=== PATIENT | male | born 1945 | race Caucasian/White ===

== ENCOUNTER 2017-10-12 19:12 | Observation (INO) | payer OTHER, MEDICARE ==
[~2017-10-12] VITALS: Ht 177.8 cm; Wt 81.0 kg
[~2017-10-12 19:12] MED LIST: ASPI1TAB69 PO; FOLI1TAB4 PO; HYDR-3288 PO; LISI-515 PO; METO25TA3 PO; MOBI15TA PO; NAPR250T4 PO; SIMV40TA PO; THIA100T PO; TRID0.1C TOPICAL
[2017-10-12 19:17] VITALS: BP 137/82; TEMP 97.7; O2SAT 100
--- NOTE | 2017-10-12 19:27 | PD ---
HPI Chief Complaint: Alcohol/Drug Intoxication Time Seen by Provider: 19:20 Travel History International Travel<30 days: No Contact w/Intl Traveler<30days: No Traveled to known affect area: No History of Present Illness HPI 72-year-old male was brought in by EMS for intoxication and knee injury. Patient fell at home. Patient's friend called EMS. Patient admitted to alcohol consumption today. Patient does not offer any complaint now. PFSH Past Medical History Hx Anticoagulant Therapy: Yes (81 MG. ASA DAILY) Arthritis: Yes Asthma: No Autoimmune Disease: No Blood Disorders: No Anxiety: Yes Depression: Yes Heart Rhythm Problems: No Cancer: No Cardiovascular Problems: Yes (HTN, CHOL, PA) High Cholesterol: Yes Chemotherapy: No Chest Pain: No Congestive Heart Failure: No COPD: Yes Cerebrovascular Accident: No Coronary Artery Disease: Yes Diabetes: Yes Diminished Hearing: No Endocrine: No Gastrointestinal Disorders: Yes GERD: Yes Glaucoma: No Genitourinary: No Headaches: No Hepatitis: No Hypertension: Yes Immune Disorder: No Kidney Stones: No Musculoskeletal: Yes Neurologic: Yes Psychiatric: No Respiratory: Yes Migraines: No Myocardial Infarction: Yes (06/2011) Radiation Therapy: No Renal Failure: No Seizures: Yes (1982) Sickle Cell Disease: No Sleep Apnea: No Thyroid Disease: No Ulcer: No Past Surgical History Abdominal Surgery: Yes (COLON TWISTED) AICD: No Appendectomy: Yes Arteriovenous Shunt: No Cardiac Surgery: No Cholecystectomy: No Ear Surgery: No Endocrine Surgery: No Eye Surgery: No Genitourinary Surgery: No Gynecologic Surgery: No Insulin Pump: No Joint Replacement: No Oral Surgery: No Pacemaker: No Thoracic Surgery: No Other Surgery: Yes Social History Alcohol Use: Yes (OCCASSIONALLY) Tobacco Use: Yes (1 2P) Substance Use: No Allergies-Medications (Allergen,Severity, Reaction): Coded Allergies: No Known Allergies (Unverified , 09/14/16) Reported Meds & Prescriptions Reported Meds & Active Scripts Active Triderm Topical (Triamcinolone Topical) 0.1 % Cream 1 Applic TOPICAL BID Reported Thiamine (Thiamine HCl) 100 Mg Tab 100 Mg PO DAILY Simvastatin 40 Mg Tab 40 Mg PO HS Naproxen 250 Mg Tab 125 Mg PO BID Metoprolol Tartrate 25 Mg Tab 25 Mg PO BID Mobic (Meloxicam) 15 Mg Tab 15 Mg PO DAILY Lisinopril 20 Mg Tab 20 Mg PO DAILY [place] (Hydrocodone-Acetaminophen) 7.5-325 mg Tab 1 Tab PO Q4H PRN Folate (Folic Acid) 1 Mg Tab 1 Mg PO DAILY Aspirin 81 Mg Tabdr 81 Mg PO DAILY Review of Systems General / Constitutional: No: Fever Eyes: No: Visual changes HENT: No: Headaches Cardiovascular: No: Chest Pain or Discomfort Respiratory: No: Shortness of Breath Gastrointestinal: No: Abdominal Pain Genitourinary: No: Dysuria Musculoskeletal: No: Pain Skin: No Rash Neurologic: No: Weakness Psychiatric: No: Depression Endocrine: No: Polydipsia Hematologic/Lymphatic: No: Easy Bruising Physical Exam Narrative GENERAL: Well-nourished, well-developed patient. SKIN: Focused skin assessment warm/dry. HEAD: Normocephalic. EYES: No scleral icterus. No injection or drainage. Pupils 2 mm equal reactive. NECK: Supple, trachea midline. No JVD or lymphadenopathy. CARDIOVASCULAR: Regular rate and rhythm without murmurs, gallops, or rubs. RESPIRATORY: Breath sounds equal bilaterally. No accessory muscle use. GASTROINTESTINAL: Abdomen soft, non-tender, nondistended. MUSCULOSKELETAL: Patient has a small area abrasion prepatellar area of the right knee. Full range of motion the right knee. Patient has small area abrasion lateral aspect the left knee. Full range of motion left knee. Knee joints stable. BACK: Nontender without obvious deformity. No CVA tenderness. Neurologic exam: Patient is intoxicated or and repeating questions. Patient moves all extremity well. No obvious focal neurological deficit. Data Data Last Documented VS Vital Signs Date Time Temp Pulse Resp B/P (MAP) Pulse Ox O2 Delivery O2 Flow Rate FiO2 10/12/17 21:25 100 18 148/78 (101) 98 Nasal Cannula 2.00 10/12/17 19:17 97.7 Orders Orders Basic Metabolic Panel (Bmp) (10/12/17 19:20) Iv Access Insert/Monitor (10/12/17 19:20) Ecg Monitoring (10/12/17 19:20) Oximetry (10/12/17 19:20) Alcohol (Ethanol) (10/12/17 19:20) Knee, Ltd (1 Or 2vws) (10/12/17 19:20) Knee, Ltd (1 Or 2vws) (10/12/17 19:20) Haloperidol Inj (Haldol Inj) (10/12/17 19:58) Lorazepam Inj (Ativan Inj) (10/12/17 19:58) Lorazepam Inj (Ativan Inj) (10/12/17 20:00) Haloperidol Inj (Haldol Inj) (10/12/17 20:00) Tetanus/Diphtheria Tox Adult (Tetanus/Di (10/12/17 20:15) Lidocaine 1% Inj (50 Ml) (Xylocaine 1% I (10/12/17 20:15) Ct Brain W/O Iv Contrast(Rout) (10/12/17 20:07) Urinary Catheter Insert/Apply (10/12/17 20:18) Naloxone Inj (Narcan Inj) (10/12/17 20:30) Ct Facial Bones W/O Iv Cont (10/12/17 20:53) Restraints Non-Violent ZANDER.Q3H (10/12/17 21:29) Labs Laboratory Tests Test 10/12/17 19:40 Blood Urea Nitrogen 16 MG/DL Creatinine 0.90 MG/DL Random Glucose 115 MG/DL Calcium Level 8.7 MG/DL Sodium Level 138 MEQ/L Potassium Level 3.9 MEQ/L Chloride Level 106 MEQ/L Carbon Dioxide Level 22.1 MEQ/L Anion Gap 10 MEQ/L Estimat Glomerular Filtration Rate 83 ML/MIN Ethyl Alcohol Level 290 MG/DL MDM Medical Decision Making Medical Screen Exam Complete: Yes Emergency Medical Condition: Yes Interpretation(s) Last Impressions Head CT 10/12/172006 Signed Impressions: Service Date/Time: Thursday, October 12, 2017 20:56 - CONCLUSION: 1. Mild cerebral atrophy. 2. Old lacunar infarct within the right basal ganglia. 3. No acute hemorrhage, acute infarct, mass effect or extra-axial fluid collections. 4. Mild mucosal thickening involving the maxillary sinuses bilaterally. Ho Baltazar MD 21:29 PM. BMP within normal limit. Alcohol 290. 22:15 PM. Last Impressions Maxillofacial CT 10/12/172052 Signed Impressions: Service Date/Time: Thursday, October 12, 2017 20:56 - CONCLUSION: 1. No acute facial bone fracture. 2. Probable old nasal bone fractures. 3. Mucosal thickening involving the maxillary sinuses bilaterally. 4. Nasal septal deviation to the left with nasal septal spur protruding into the left nasal cavity. Ho Baltazar MD Head CT 10/12/172006 Signed Impressions: Service Date/Time: Thursday, October 12, 2017 20:56 - CONCLUSION: 1. Mild cerebral atrophy. 2. Old lacunar infarct within the right basal ganglia. 3. No acute hemorrhage, acute infarct, mass effect or extra-axial fluid collections. 4. Mild mucosal thickening involving the maxillary sinuses bilaterally. Ho Baltazar MD Knee X-Ray 10/12/171919 Signed Impressions: Service Date/Time: Thursday, October 12, 2017 20:15 - CONCLUSION: 1. No acute fracture or dislocation. 2. Mild degenerative changes involving the patellofemoral and femoral-tibial joints. 3. Spurring along the anterior aspect of the patella. Ho Baltazar MD Knee X-Ray 10/12/171919 Signed Impressions: Service Date/Time: Thursday, October 12, 2017 20:15 - CONCLUSION: 1. No acute fracture or dislocation. 2. Mild degenerative changes involving the patellofemoral and femorotibial joints. 3. Spurring along the anterior aspect of the patella. Ho Baltazar MD Differential Diagnosis Differential diagnosis including abrasion, contusion, fracture, dislocation. Narrative Course 72-year-old male with knee injury. Patient's intoxicated. Patient was put on monitor. Blood tests were drawn. Patient tried to get out of bed and fell on the floor. No loss of consciousness. Patient has a 3 cm laceration on the forehead. Patient was put back to bed. CT scan of the brain ordered. TD booster given. Laceration was sutured. Haldol 5 mg IM. Ativan 2 mg IM given. Diagnosis Primary Impression: Closed head injury Qualified Codes: S09.90XA - Unspecified injury of head, initial encounter Additional Impressions: Forehead laceration Qualified Codes: S01.81XA - Laceration without foreign body of other part of head, initial encounter Alcohol intoxication Qualified Codes: F10.920 - Alcohol use, unspecified with intoxication, uncomplicated Patient Instructions: General Instructions Additional Instructions: Follow-up with local physician. Suture removal in 7 days. Head trauma instructions given. Med/Other Pt SpecificInfo: No Change to Meds Disposition: 01 DISCHARGE HOME Condition: Stable Kt Wild MD Oct 12, 2017 19:27
[2017-10-12 19:44] VITALS: O2SAT 98
[2017-10-12 19:54] LABS: POTASSIUM 3.9 MEQ/L (3.5-5.1)
[2017-10-12 19:57] LABS: BICARBONATE 22.1 MEQ/L (21.0-32.0)
[2017-10-12] MEDS ORDERED: LORazepam 2 MG/ML VIAL ONE (19:58)
[2017-10-12] MEDS ORDERED: HALOPERIDOL LACTATE 5 MG/ML AMP ONE (19:58)
[2017-10-12 20:00] VITALS: BP 180/88; PULSE 108; RESP 18; O2SAT 98
[2017-10-12] MEDS ORDERED: LORazepam 2 MG/ML VIAL IM ONE (20:00)
[2017-10-12] MEDS ORDERED: HALOPERIDOL LACTATE 5 MG/ML AMP IM ONE (20:00)
[2017-10-12] MEDS ORDERED: LIDOCAINE HCL 1% 50 ML VIAL INFIL ONE (20:15)
[2017-10-12] MEDS ORDERED: TETANUS/DIPHTHERIA TOXOID ADULT 0.5 ML VIAL IM ONE (20:15)
[2017-10-12] MEDS ORDERED: NALOXONE HCL 0.4 MG/ML AMP IV PUSH PRN (20:30)
--- NOTE | 2017-10-12 20:51 | PD ---
Physical Exam Date Seen by Provider: Oct 12, 2017 Time Seen by Provider: 20:50 Narrative I was asked by Dr. Wild to see this patient for laceration to the anterior forehead. Please see procedure note. Data Data Last Documented VS Vital Signs Date Time Temp Pulse Resp B/P (MAP) Pulse Ox O2 Delivery O2 Flow Rate FiO2 10/12/17 20:00 108 18 180/88 (118) 98 Room Air 10/12/17 19:17 97.7 Orders Orders Basic Metabolic Panel (Bmp) (10/12/17 19:20) Iv Access Insert/Monitor (10/12/17 19:20) Ecg Monitoring (10/12/17 19:20) Oximetry (10/12/17 19:20) Alcohol (Ethanol) (10/12/17 19:20) Knee, Ltd (1 Or 2vws) (10/12/17 19:20) Knee, Ltd (1 Or 2vws) (10/12/17 19:20) Haloperidol Inj (Haldol Inj) (10/12/17 19:58) Lorazepam Inj (Ativan Inj) (10/12/17 19:58) Lorazepam Inj (Ativan Inj) (10/12/17 20:00) Haloperidol Inj (Haldol Inj) (10/12/17 20:00) Tetanus/Diphtheria Tox Adult (Tetanus/Di (10/12/17 20:15) Lidocaine 1% Inj (50 Ml) (Xylocaine 1% I (10/12/17 20:15) Ct Brain W/O Iv Contrast(Rout) (10/12/17 20:07) Urinary Catheter Insert/Apply (10/12/17 20:18) Naloxone Inj (Narcan Inj) (10/12/17 20:30) Labs Laboratory Tests Test 10/12/17 19:40 Blood Urea Nitrogen 16 MG/DL Creatinine 0.90 MG/DL Random Glucose 115 MG/DL Calcium Level 8.7 MG/DL Sodium Level 138 MEQ/L Potassium Level 3.9 MEQ/L Chloride Level 106 MEQ/L Carbon Dioxide Level 22.1 MEQ/L Anion Gap 10 MEQ/L Estimat Glomerular Filtration Rate 83 ML/MIN Ethyl Alcohol Level 290 MG/DL [facility] Medical Record Reviewed: Yes Supervised Visit with GOOD: Yes Procedures Procedure Narrative LACERATION LOCATION: Right anterior middle forehead LENGTH: 2.5 cm NUMBER OF STITCHES/RYLIE: 1 horizontal, 4 interrupted simple sutures REPAIR: The area of the laceration was prepped with Betadine and sterilely draped. The laceration was infiltrated with 3 mL 1% lidocaine. The wound was copiously irrigated and explored without evidence of foreign body, tendon injury or neurovascular injury. The wound was closed using 5-0 Prolene. This was a single layer repair. A sterile dressing was applied. The patient was advised to keep the dressing clean and dry. Patient tolerated the procedure well. Condition: Stable Parish Ravi Oct 12, 2017 20:51
--- NOTE | 2017-10-12 21:18 | RADRPT ---
EXAM DATE/TIME: 10/12/2017 20:56 [facility] COMPARISON: CT BRAIN W/O CONTRAST, October 06, 2015, 3:57. INDICATIONS : ETOH. Question fall/trauma RADIATION DOSE: 63.37 CTDIvol (mGy) ; Patient motion MEDICAL HISTORY : Chronic obstructive pulmonary disease. Hypertension. CAD SURGICAL HISTORY : Appendectomy. ENCOUNTER: Initial ACUITY: 1 day PAIN SCALE: Non-responsive LOCATION: cranial TECHNIQUE: Multiple contiguous axial images were obtained of the head. Using automated exposure control and adj ustment of the mA and/or kV according to patient size, radiation dose was kept as low as reasonably a chievable to obtain optimal diagnostic quality images. DICOM format image data is available electro nically for review and comparison. FINDINGS: CEREBRUM: Mild cerebral atrophy is noted. There is an old lacunar infarct within the right basal ganglia. No ev idence of midline shift, mass lesion, hemorrhage or acute infarction. No extra-axial fluid collectio ns are seen. POSTERIOR FOSSA: The cerebellum and brainstem are intact. The 4th ventricle is midline. The cerebellopontine angle i s unremarkable. EXTRACRANIAL: The visualized portion of the orbits is intact. Mild mucosal thickening is noted involving the maxill cristofer sinus bilaterally. SKULL: The calvaria is intact. No evidence of skull fracture. CONCLUSION: 1. Mild cerebral atrophy. 2. Old lacunar infarct within the right basal ganglia. 3. No acute hemorrhage, acute infarct, mass effect or extra-axial fluid collections. 4. Mild mucosal thickening involving the maxillary sinuses bilaterally. Ho Baltazar MD on October 12, 2017 at 21:15 Board Certified Radiologist. This report was verified electronically.
[2017-10-12 21:25] VITALS: BP 148/78; PULSE 100; RESP 18; O2SAT 98
--- NOTE | 2017-10-12 21:33 | RADRPT ---
EXAM DATE/TIME: 10/12/2017 20:56 [facility] COMPARISON: No previous studies available for comparison. INDICATIONS : ETOH. Patient unresponsive. Laceration to nose/ RADIATION DOSE: 34.97 CTDIvol (mGy) MEDICAL HISTORY : Hypertension. Chronic obstructive pulmonary disease. SURGICAL HISTORY : Non-responsive. ENCOUNTER: Initial ACUITY: 1 day PAIN SCORE: Non-responsive LOCATION: facial TECHNIQUE: Volumetric scanning of the facial bones was performed. Using automated exposure control and adjustme nt of the mA and/or kV according to patient size, radiation dose was kept as low as reasonably achiev able to obtain optimal diagnostic quality images. DICOM format image data is available electronicall y for review and comparison. FINDINGS: ORBITS: The orbital and infraorbital osseous structures are intact. The retroconal structures have a normal configuration. No radiopaque foreign bodies are seen. NASAL BONE: There are probable old nasal bone fractures. ZYGOMATIC ARCHES: Symmetric without evidence of fracture. SINUSES: Mucosal thickening is noted within the maxillary sinuses bilaterally. The ethmoid and frontal sinuses are intact. No air-fluid levels seen. NASAL CAVITY: Nasal septal deviation to the left is noted. Nasal septal spur protrudes into the left nasal cavity. The lacrimal ducts are intact. SOFT TISSUES: No radiopaque foreign bodies seen. No soft-tissue swelling is seen. INTRACRANIAL: No intracranial air seen. CRIBIFORM PLATE: Grossly intact. CONCLUSION: 1. No acute facial bone fracture. 2. Probable old nasal bone fractures. 3. Mucosal thickening involving the maxillary sinuses bilaterally. 4. Nasal septal deviation to the left with nasal septal spur protruding into the left nasal cavity. Ho Baltazar MD on October 12, 2017 at 21:30 Board Certified Radiologist. This report was verified electronically.
--- NOTE | 2017-10-12 21:55 | RADRPT ---
EXAM DATE/TIME: 10/12/2017 20:15 [facility] COMPARISON: No previous studies available for comparison. INDICATIONS : Left knee pain post fall. MEDICAL HISTORY : Myocardial infarction. Hypertension. Chronic obstructive pulmonary disease. Seizures, CAD, GERD , Arthritis SURGICAL HISTORY : Appendectomy. ENCOUNTER: Initial ACUITY: 1 day PAIN SCORE: Non-responsive. LOCATION: Left knee FINDINGS: There is no acute fracture or dislocation of the left knee. Spurring is noted along the anterior aspe ct of the patella. Old healed fracture of the left proximal fibular shaft is noted. Mild degenerative changes are noted involving the patellofemoral and femoral-tibial joints. No knee joint effusion is noted. CONCLUSION: 1. No acute fracture or dislocation. 2. Mild degenerative changes involving the patellofemoral and femorotibial joints. 3. Spurring along the anterior aspect of the patella. Ho Baltazar MD on October 12, 2017 at 21:52 Board Certified Radiologist. This report was verified electronically.
--- NOTE | 2017-10-12 21:57 | RADRPT ---
EXAM DATE/TIME: 10/12/2017 20:15 [facility] COMPARISON: No previous studies available for comparison. INDICATIONS : Right knee pain post fall. MEDICAL HISTORY : Seizures, CAD, GERD, Arthritis, Myocardial infarction. Chronic obstructive pulmonary disease. Hyperte nsion SURGICAL HISTORY : Appendectomy. ENCOUNTER: Initial ACUITY: 1 day PAIN SCORE: Non-responsive. LOCATION: Right knee FINDINGS: There is no acute fracture or dislocation. Spurring is noted along the anterior aspect of the patella . Mild degenerative changes are noted involving the patellofemoral and femorotibial joints. No knee j oint effusion is noted. CONCLUSION: 1. No acute fracture or dislocation. 2. Mild degenerative changes involving the patellofemoral and femoral-tibial joints. 3. Spurring along the anterior aspect of the patella. Ho Baltazar MD on October 12, 2017 at 21:54 Board Certified Radiologist. This report was verified electronically.
[2017-10-12 22:20] VITALS: BP 155/65; PULSE 95; RESP 16; O2SAT 98
[2017-10-12 22:45] VITALS: BP 160/80; PULSE 98; RESP 16; O2SAT 98
[2017-10-13] VITALS (9 sets, daily range): BP systolic 109–158; BP diastolic 62–83; PULSE 98–106; RESP 16–18; TEMP 98.6; O2SAT 96–99
--- NOTE | 2017-10-13 05:18 | PD ---
Physical Exam Date Seen by Provider: Oct 13, 2017 Time Seen by Provider: 05:00 Narrative GENERAL: Pleasant elderly male GCS 15 SKIN: Warm and dry. Laceration repair to the forehead with bruising to the nose and lips. HEAD: Normocephalic. Atraumatic. EYES: No scleral icterus. No injection or drainage. NECK: Supple, trachea midline. No JVD or lymphadenopathy. CARDIOVASCULAR: Regular rate and rhythm without murmurs, gallops, or rubs. RESPIRATORY: Breath sounds equal bilaterally. No accessory muscle use. GASTROINTESTINAL: Abdomen soft, non-tender, nondistended. MUSCULOSKELETAL: No cyanosis, or edema. BACK: Nontender without obvious deformity. No CVA tenderness. Data Data Last Documented VS Vital Signs Date Time Temp Pulse Resp B/P (MAP) Pulse Ox O2 Delivery O2 Flow Rate FiO2 10/13/17 04:45 98 18 142/74 (96) 98 Room Air 10/13/17 02:00 2.00 10/12/17:17 97.7 Orders Orders Basic Metabolic Panel (Bmp) (10/12/17 19:20) Iv Access Insert/Monitor (10/12/17 19:20) Ecg Monitoring (10/12/17 19:20) Oximetry (10/12/17 19:20) Alcohol (Ethanol) (10/12/17 19:20) Knee, Ltd (1 Or 2vws) (10/12/17 19:20) Knee, Ltd (1 Or 2vws) (10/12/17 19:20) Haloperidol Inj (Haldol Inj) (10/12/17 19:58) Lorazepam Inj (Ativan Inj) (10/12/17 19:58) Lorazepam Inj (Ativan Inj) (10/12/17 20:00) Haloperidol Inj (Haldol Inj) (10/12/17 20:00) Tetanus/Diphtheria Tox Adult (Tetanus/Di (10/12/17 20:15) Lidocaine 1% Inj (50 Ml) (Xylocaine 1% I (10/12/17 20:15) Ct Brain W/O Iv Contrast(Rout) (10/12/17 20:07) Urinary Catheter Insert/Apply (10/12/17 20:18) Naloxone Inj (Narcan Inj) (10/12/17 20:30) Ct Facial Bones W/O Iv Cont (10/12/17 20:53) Restraints Non-Violent ZANDER.Q3H (10/12/17 21:29) Alcohol (Ethanol) (10/13/17 05:12) Place In Observation (10/13/17 ) Vital Signs (Adult) Q4H (10/13/17 05:46) Activity Bed Rest With Brp (10/13/17 05:46) Bedside Glucose ZANDER.CSUGAR (10/13/17 05:46) Intake + Output ZANDER.QSHIFT (10/13/17 05:46) Alcohol Withdrawal Asmt-Ciwa Q4HX18 (10/13/17 05:46) ^ Seizure Precautions (10/13/17 05:46) Diet Regular Basic (10/13/17 Breakfast) Sodium Chloride 0.9% Flush (Ns Flush) (10/13/17 06:00) Sodium Chloride 0.9% Flush (Ns Flush) (10/13/17 09:00) Folic Acid (Folate) (10/13/17 09:00) Thiamine (Vit B1) (Vitamin B1) (10/13/17 09:00) Multivitamins-Minerals Therap (Theragran (10/13/17 09:00) Ondansetron Inj (Zofran Inj) (10/13/17 06:00) Comprehensive Metabolic Panel (10/14/17 06:00) Complete Blood Count With Diff (10/14/17 06:00) Consult Cm-Etoh Abuse Dc Plan (10/13/17 ) Flumazenil Inj (Romazicon Inj) (10/13/17 06:00) Lorazepam (Ativan) (10/13/17 06:00) Lorazepam Inj (Ativan Inj) (10/13/17 06:00) Lorazepam (Ativan) (10/13/17 06:00) Lorazepam Inj (Ativan Inj) (10/13/17 06:00) Lorazepam Inj (Ativan Inj) (10/13/17 06:00) Lorazepam Inj (Ativan Inj) (10/13/17 06:00) Scd Bilateral/Knee High ZANDER.BID (10/13/17 05:46) Admit Order (Ed Use Only) (10/13/17 ) Vital Signs (Adult) Q4H (10/13/17 05:48) Activity Oob With Assistance (10/13/17 05:48) Notify Dr: Other (10/13/17 05:48) Labs Laboratory Tests Test 10/12/17 19:40 10/13/17 05:10 Blood Urea Nitrogen 16 MG/DL Creatinine 0.90 MG/DL Random Glucose 115 MG/DL Calcium Level 8.7 MG/DL Sodium Level 138 MEQ/L Potassium Level 3.9 MEQ/L Chloride Level 106 MEQ/L Carbon Dioxide Level 22.1 MEQ/L Anion Gap 10 MEQ/L Estimat Glomerular Filtration Rate 83 ML/MIN Ethyl Alcohol Level 290 MG/DL 141 MG/DL MDM Medical Record Reviewed: Yes Supervised Visit with GOOD: No Narrative Course Patient was evaluated by previous provider for alcohol intoxication with fall and went in the hospital fell again out of the bed and sustained a forehead laceration which was repaired with full imaging studies revealed no acute bony abnormality or injury cranial process. Patient was left + out to sleep off alcohol intoxication Haldol and Ativan which had been administered for his agitation management. Patient on review of medical records has history of alcoholism with frequent falls ataxic gait and increased risk for fall. Patient in the emergency department was assisted with ambulation without fall but does show evidence of for significant gait disturbance and ataxia and does have need of assistance device such as a walker or may even need placement. Serum alcohol was requested for repeat and that has been performed and results are pending. Patient has access to support at home with a family member and will need to follow-up with his primary care provider regarding his chronic ataxic gait alcoholism and possible placement. Physician Communication Physician Communication discussed with Dr Villagomez --- OBS Diagnosis Primary Impression: Closed head injury Qualified Codes: S09.90XA - Unspecified injury of head, initial encounter Additional Impressions: Forehead laceration Qualified Codes: S01.81XA - Laceration without foreign body of other part of head, initial encounter Alcohol intoxication Qualified Codes: F10.920 - Alcohol use, unspecified with intoxication, uncomplicated Ataxia Patient Instructions: General Instructions Additional Instruction: Follow-up with local physician. Suture removal in 7 days. Head trauma instructions given. Disposition: 01 DISCHARGE HOME Condition: Stable Cele Crook MD Oct 13, 2017 05:18
[2017-10-13] MEDS ORDERED: LORazepam 2 MG TAB PO PRN (06:00)
[2017-10-13] MEDS ORDERED: LORazepam 1 MG TAB PO PRN (06:00)
[2017-10-13] MEDS ORDERED: SODIUM CHLORIDE 0.9% FLUSH 10 ML FLUSH IV FLUSH PRN (06:00)
[2017-10-13] MEDS ORDERED: FLUMAZENIL 0.5 MG/5 ML VIAL IV PUSH PRN (06:00)
[2017-10-13] MEDS ORDERED: ONDANSETRON HCL 4 MG/2 ML VIAL IV PUSH PRN (06:00)
[2017-10-13] MEDS ORDERED: LORazepam 2 MG/ML VIAL IV PUSH PRN ×4 (06:00)
[2017-10-13] MEDS ORDERED: MULTIVITAMINS/MINERALS THERAPEUTIC TAB PO SCH (09:00)
[2017-10-13] MEDS ORDERED: SODIUM CHLORIDE 0.9% FLUSH 10 ML FLUSH IV FLUSH SCH (09:00)
[2017-10-13] MEDS ORDERED: THIAMINE HCL 100 MG TAB PO SCH (09:00)
[2017-10-13] MEDS ORDERED: FOLIC ACID 1 MG TAB PO SCH (09:00)
[2017-10-13 10:37] LABS: INDIRECT BILIRUBIN 0.2 MG/DL (0.0-0.8); TOTAL BILIRUBIN ADULT 0.3 MG/DL (0.2-1.0)
[2017-10-13] MEDS ORDERED: diphenhydrAMINE HCL 2%/ZINC ACETATE 0.1% CREAM 30 APPLIC/30 GM TUBE TOPICAL ONE (11:45)
[2017-10-13] MEDS ORDERED: HYDROCORTISONE 1% CREAM 30 GM TOPICAL ONE (11:45)
--- NOTE | 2017-10-13 12:43 | HHI.HP ---
[facility] Service [facility] Primary [facility] Physician [facility] Admission Diagnosis ataxia; alcohol intoxication Diagnoses: Chief Complaint: Ataxia, ETOH intoxication Travel History International Travel<30 Days: No Contact w/Intl Traveler <30 Da: No Traveled to Known Affected Are: No History of Present Illness 72-year-old white male being admitted for ataxia and alcoholic intoxication. History is very limited as the patient cannot give a good history since he has a very poor memory recollection of what happened just prior to EMS being called. Apparently patient's friend had called EMS for some reason. Patient states that he cannot remember much and thinks he might of been unconscious at home for some amount of time. He does not recall falling at home. The only thing he does remember is that he drank a pint of alcohol some time yesterday before having come that hospital. He denies experiencing any chest pain or shortness of breath or fevers or chills leading up to last night's emergency room visit. He says that every day before that he's been drinking 3-4 beers daily and has been doing this for many years. He says he is currently "moving out" and now living with a friend in a mobile home. In the emergency room the patient had tried to get out of bed but fell sustaining a laceration to his forehead which was sutured. He underwent a CT scan which showed no acute intracranial hemorrhage. His electrolytes and lab workup was otherwise unremarkable however he does have a substantially elevated blood alcohol level. Eventually his mental status returned to a GCS score 15. Patient was admitted due to being unable to walk safely with an ataxic gait. Review of Systems Except as stated in HPI: all other systems reviewed are Neg Past Family Social History Past Medical History CA, HTN, HYL, DM Past Surgical History ? unspecified abd colonic surgery Allergies: Coded Allergies: No Known Allergies (Unverified Allergy, Unknown, 10/13/17) Family History no family hx of ETOH usage Social History drinks 3-4 beers daily, retired Physical Exam Vital Signs Vital Signs Date Time Temp Pulse Resp B/P (MAP) Pulse Ox O2 Delivery O2 Flow Rate FiO2 10/13/17 12:00 98.6 101 18 153/83 (106) 96 10/13/17 08:00 98.6 98 18 126/69 (88) 96 10/13/17 06:23 89 16 128/69 (88) 98 Nasal Cannula 10/13/17 04:45 98 18 142/74 (96) 98 Room Air 10/13/17 02:00 98 16 116/76 (89) 97 Nasal Cannula 2.00 10/13/17 01:30 106 16 109/62 (78) 98 Nasal Cannula 2.00 10/13/17 01:00 102 16 136/73 (94) 98 Nasal Cannula 2.00 10/13/17 00:30 104 16 142/67 (92) 96 Nasal Cannula 2.00 10/13/17 00:00 102 18 158/75 (102) 99 Nasal Cannula 2.00 10/12/17 22:45 98 16 160/80 (106) 98 Nasal Cannula 2.00 10/12/17 22:20 95 16 155/65 (95) 98 Nasal Cannula 10/12/17 21:25 100 18 148/78 (101) 98 Nasal Cannula 2.00 10/12/17 20:00 108 18 180/88 (118) 98 Room Air 10/12/17 19:44 Room Air 10/12/17 19:44 98 10/12/17 19:17 97.7 103 18 137/82 (100) 100 Physical Exam VS: afebrile GENERAL: Lying in bed, middle-aged white male, awake, alert, in no acute distress SKIN: Has sutures in place over right forehead EYES: Pupils equal and round. No scleral icterus. No injection or drainage. ENT: No nasal bleeding or discharge. Has a mild skin scrape on lateral aspect of right nostril CARDIOVASCULAR: Regular rate and rhythm. no murmurs RESPIRATORY: No accessory muscle use. Clear to auscultation. Breath sounds equal bilaterally. GASTROINTESTINAL: Abdomen soft, non-tender, nondistended. Extremities: No clubbing, cyanosis, or edema. No obvious deformities. MUSCULOSKELETAL: grossly intact ROM with 5/5 strength in upper and lower extremities proximally NEUROLOGICAL: Awake and alert. No obvious cranial nerve deficits. No facial droop nor slurred speech noted. Has intact finger to nose to finger bilaterally. PSYCHIATRIC: Appropriate mood and affect; insight and judgment normal. Laboratory Laboratory Tests Test 10/12/17 19:40 10/13/17 05:10 10/13/17 05:18 Blood Urea Nitrogen 16 Creatinine 0.90 Random Glucose 115 Calcium Level 8.7 Sodium Level 138 Potassium Level 3.9 Chloride Level 106 Carbon Dioxide Level 22.1 Anion Gap 10 Estimat Glomerular Filtration Rate 83 Ethyl Alcohol Level 290 141 Total Bilirubin 0.3 Direct Bilirubin 0.1 Indirect Bilirubin 0.2 Aspartate Amino Transf (AST/SGOT) 29 Alanine Aminotransferase (ALT/SGPT) 25 Alkaline Phosphatase 79 Total Protein 7.5 Albumin 4.0 Result Diagram: 10/12/171939 Caprini VTE Risk Assessment Caprini VTE Risk Assessment: Mod/High Risk (score >= 2) Caprini Risk Assessment Model Point Value = 1 Point Value = 2 Point Value = 3 Point Value = 5 Age 41-60 Minor surgery BMI > 25 kg/m2 Swollen legs Varicose veins or History of unexplained or recurrent spontaneous Oral contraceptives or hormone replacement Sepsis (< 1 month) Serious lung disease, including pneumonia (< 1 month) Abnormal pulmonary function Acute myocardial infarction Congestive heart failure (< 1 month) History of inflammatory bowel disease Medical patient at bed rest Age 61-74 Arthroscopic surgery Major open surgery (> 45 min) Laparoscopic surgery (> 45 min) Malignancy Confined to bed (> 72 hours) Immobilizing plaster cast Central venous access Age >= 75 History of VTE Family history of VTE Factor V Leiden Prothrombin [id number] Lupus anticoagulant Anticardiolipin antibodies Elevated serum homocysteine Heparin-induced thrombocytopenia Other congenital or acquired thrombophilia Stroke (< 1 month) Elective arthroplasty Hip, pelvis, or leg fracture Acute spinal cord injury (< 1 month) Prophylaxis Regimen Total Risk Factor Score Risk Level Prophylaxis Regimen 0-1 Low Early ambulation 2 Moderate Order ONE of the following: *Sequential Compression Device (SCD) *Heparin 5000 units SQ BID 3-4 Higher Order ONE of the following medications: *Heparin 5000 units SQ TID *Enoxaparin/Lovenox 40 mg SQ daily (WT < 150 kg, CrCl > 30 mL/min) *Enoxaparin/Lovenox 30 mg SQ daily (WT < 150 kg, CrCl > 10-29 mL/min) *Enoxaparin/Lovenox 30 mg SQ BID (WT < 150 kg, CrCl > 30 mL/min) AND/OR *Sequential Compression Device (SCD) 5 or more Highest Order ONE of the following medications: *Heparin 5000 units SQ TID (Preferred with Epidurals) *Enoxaparin/Lovenox 40 mg SQ daily (WT < 150 kg, CrCl > 30 mL/min) *Enoxaparin/Lovenox 30 mg SQ daily (WT < 150 kg, CrCl > 10-29 mL/min) *Enoxaparin/Lovenox 30 mg SQ BID (WT < 150 kg, CrCl > 30 mL/min) AND *Sequential Compression Device (SCD) Assessment and Plan Assessment and Plan Ataxia and falling - I independent reviewed EKG which shows no concerning ST segment abnormalities for ischemia or infarction or arrhythmias, otherwise is showing normal sinus rhythm. Patient's electrolytes including magnesium levels are within normal limits. The patient's original presentation to the hospital is most likely result of alcoholic intoxication. The patient is now fully oriented and is wanting to quit drinking alcohol. Case discussed with physical therapist who evaluated the patient relayed that he is safe to go home with a walker. The patient's clinical picture does not suggest any signs or symptoms of acute coronary syndrome. We will therefore discharge him with a Librium taper and a Holter monitor as well. Pt was instructed to follow-up with PCP or return to the emergency room within less than a week for suture removal. nonspecified dermatitis on right arm - hydrocortisone cream and Benadryl cream - pt was counseled on this. In total, the time spent on the patient was over 45 minutes of which more than 50% consisted of patient care involved in discussing his care, counseling the patient, and discussing his care with the physical therapist . Antonio Castano MD Oct 13, 2017 12:43
[2017-10-13] MEDS ORDERED: THIAMINE INJ 100 MG in SODIUM CHLORIDE 0.9% INJ 100 ML IV SCH (14:00)
--- NOTE | 2017-10-13 14:38 | HHI.DCPOC ---
Discharge Care Plan Diagnosis: (1) Forehead laceration (2) Closed head injury (3) Ataxia (4) Alcohol intoxication Goals to Promote Your Health * To prevent worsening of your condition and complications * To maintain your health at the optimal level Directions to Meet Your Goals Take your medications as prescribed Follow your dietary instruction Follow activity as directed Keep your appointments as scheduled Take your immunizations and boosters as scheduled If your symptoms worsen call your PCP, if no PCP go to Urgent Care Center or Emergency Room Smoking is Dangerous to Your Health. Avoid second hand smoke Call the 24-hour hour crisis hotline for domestic abuse at Antonio Castano MD Oct 13, 2017 14:38
[2017-10-13] MEDS ORDERED: CHLO10CA5 PO (14:47)
--- NOTE | 2017-10-14 13:16 | EKG ---
Date Performed: 10/13/2017 Time Performed: 13:17:25 PTAGE: 72 years EKG: Sinus rhythm INFERIOR MYOCARDIAL INFARCTION POOR R WAVE ACROSS THE PRECORDIUM, WHICH MAY BE DUE TO LEFT AXIS JUDI ATION NONSPECIFIC T-WAVE CHANGE Compared to previous tracing, R-wave progression has decreased. This could be due to lead or body position, otherwise no significant change. ABNORMAL ECG PREVIOUS TRACING : 04/21/2014 08.36 DOCTOR: Kunal Duval Interpretating Date/Time 10/14/2017 13:16:23
--- NOTE | 2017-10-17 16:09 | HM ---
Date Performed: 10/13/2017 Time Performed: 15:48:00 HOOKUP DATE: 10/13/17 03:48:00 PM Sat ANALYSIS START TIME: 10/13/2017 3:53:00 PM ANALYSIS END TIME: 10/14/2017 3:57:00 PM PATIENT AGE: 72 PATIENT HEIGHT PATIENT WEIGHT DRUG LIST PATIENT DIAGNOSIS: ATAXIA TEST NARRATIVE: The patient's average heart rate was 88 BPM. Heart rates greater than 120 B PM were noted 3% of the time. No episodes of bradycardia were noted. No pauses exceeding 2.0 sec onds were noted. 221 ventricular ectopics, which represented < 1% of the total beat count, were n oted. The highest ventricular ectopic frequency occurred from 05:00 PM to 06:00 PM Sat. During this time 22 VE(s) occurred. Ventricular ectopics were observed as 221 isolated beat(s) only. No couple ts or runs were noted. Some of the ventricular beats occurred in bigeminal cycles. 42 supraventr icular ectopics, which represented < 1% of the total beat count, were noted. The highest supraventri cular ectopic frequency occurred from 04:00 AM to 05:00 AM Sun. During this time 6 SVE(s) occurred. Multiple episodes of ST depression (defined as -1.0 mm or more) were noted in channel 1. The ma ximum depression of -1.9 mm occurred at 01:00:48 PM Sun. No episodes of ST depression (defined as -1 .0 mm or more) were noted in channel 2. Multiple episodes of ST depression (defined as -1.0 mm or mo re) were noted in channel 3. The maximum depression of -2.5 mm occurred at 05:45:50 PM Sat. NO DIAR Y RETURNED TEST INTERPRETATION: Sinus rhythm occasional PACs and PVCs Signed b y : Lenny Franco
== END 2017-10-13 17:20 | disposition home or self-care (01) ==
LOC: PHED 19:12 → PHEDA 10-13 05:50 → PH3A 10-13 06:36
PROVIDERS: ADMIT Hospitalist; ATTEND Hospitalist
DX: R27.0 Ataxia, unspecified (principal); L30.9 Dermatitis, unspecified; F10.229 Alcohol dependence with intoxication, unspecified; S01.81XA Laceration without foreign body of other part of head, initial encounter; M25.561 Pain in right knee; M25.562 Pain in left knee; I25.10 Atherosclerotic heart disease of native coronary artery without angina pectoris; I10 Essential (primary) hypertension; E11.9 Type 2 diabetes mellitus without complications; J44.9 Chronic obstructive pulmonary disease, unspecified; G31.9 Degenerative disease of nervous system, unspecified; J34.2 Deviated nasal septum; R94.31 Abnormal electrocardiogram [ECG] [EKG]; K21.9 Gastro-esophageal reflux disease without esophagitis; M19.90 Unspecified osteoarthritis, unspecified site; I25.2 Old myocardial infarction; Z23 Encounter for immunization; W06.XXXA Fall from bed, initial encounter; Y92.238 Other place in hospital as the place of occurrence of the external cause
CPT/HCPCS: 12013; 51702; 70450; 70486; 73560; 80048; 80076; 80307; 82607; 82948; 83735; 90714; 93005; 93225; 93226; 96365; 96375; 97162; 99285; G0378; G8987; G8988; J1630; J2060; J3411

== ENCOUNTER 2017-10-19 09:32 | Emergency (ER) | payer OTHER, MEDICARE ==
[~2017-10-19] VITALS: Ht 180.3 cm; Wt 85.0 kg
[~2017-10-19 09:32] MED LIST changes: -ASPI1TAB69 PO; +CHLO10CA5 PO; -FOLI1TAB4 PO; -MOBI15TA PO; -NAPR250T4 PO; -THIA100T PO
[2017-10-19 09:40] VITALS: BP 153/103; PULSE 94; RESP 18; TEMP 98; O2SAT 97
--- NOTE | 2017-10-19 10:01 | PD ---
HPI Chief Complaint: Wound/Suture/Staple Re-Check Time Seen by Provider: 09:47 Travel History International Travel<30 days: No Contact w/Intl Traveler<30days: No Traveled to known affect area: No History of Present Illness HPI Patient comes emergency Department requesting suture removal from forehead. Patient reports sutures were placed 7 days ago. Patient denies any complaints or concerns with them. Reports been placing antibiotic ointment on them. PFSH Past Medical History Hx Anticoagulant Therapy: Yes (81 MG. ASA DAILY) Arthritis: Yes Asthma: No Autoimmune Disease: No Blood Disorders: No Anxiety: Yes Depression: Yes Heart Rhythm Problems: No Cancer: No Cardiovascular Problems: Yes (HTN, CHOL, VA) High Cholesterol: Yes Chemotherapy: No Chest Pain: No Congestive Heart Failure: No COPD: Yes Cerebrovascular Accident: No Coronary Artery Disease: Yes Diabetes: No Diminished Hearing: No Endocrine: No Gastrointestinal Disorders: Yes GERD: Yes Glaucoma: No Genitourinary: No Headaches: No Hepatitis: No Hypertension: Yes Immune Disorder: No Kidney Stones: No Musculoskeletal: Yes Neurologic: Yes Psychiatric: No Reproductive: No Respiratory: Yes Migraines: No Myocardial Infarction: Yes (06/2011) Radiation Therapy: No Renal Failure: No Seizures: Yes (1982) Sickle Cell Disease: No Sleep Apnea: No Thyroid Disease: No Ulcer: No Past Surgical History Abdominal Surgery: Yes (COLON TWISTED) AICD: No Appendectomy: Yes Arteriovenous Shunt: No Cardiac Surgery: No Cholecystectomy: No Ear Surgery: No Endocrine Surgery: No Eye Surgery: No Genitourinary Surgery: No Gynecologic Surgery: No Insulin Pump: No Joint Replacement: No Oral Surgery: No Pacemaker: No Thoracic Surgery: No Other Surgery: Yes Social History Alcohol Use: Yes (OCCASSIONALLY) Tobacco Use: Yes (1 2PPD) Substance Use: No Allergies-Medications (Allergen,Severity, Reaction): Coded Allergies: No Known Allergies (Unverified Allergy, Unknown, 10/19/17) Reported Meds & Prescriptions Reported Meds & Active Scripts Active Chlordiazepoxide HCl 10 Mg Capsule 10 Mg PO DIRECTED 10 mg 3 times daily for 3 days, then 10 mg twice daily for 3 days, then 10 mg daily for 3 days Triderm Topical (Triamcinolone Topical) 0.1 % Cream 1 Applic TOPICAL BID Reported Simvastatin 40 Mg Tab 40 Mg PO HS Metoprolol Tartrate 25 Mg Tab 25 Mg PO BID Lisinopril 20 Mg Tab 20 Mg PO DAILY [place] (Hydrocodone-Acetaminophen) 7.5-325 mg Tab 1 Tab PO Q4H PRN Review of Systems Except as stated in HPI: all other systems reviewed are Neg Physical Exam Narrative GENERAL: Well-developed, overly nourished, in no acute distress, and non-ill appearing. SKIN: Focused skin assessment warm and dry. Well-healing laceration on the forehead. There are [address] dry clean intact. No signs of infection. No drainage. HEAD: Atraumatic. Normocephalic. EYES: Pupils equal and round. EOMI. No scleral icterus. No injection or drainage. ENT: No nasal bleeding or discharge. Mucous membranes pink and moist. NECK: Trachea midline. Supple. No nuclear rigidity. RESPIRATORY: No accessory muscle use. No respiratory distress. MUSCULOSKELETAL: No obvious deformities. No clubbing. No cyanosis. No edema. Full range of motion. NEUROLOGICAL: Awake and alert. No obvious cranial nerve deficits. Motor grossly within normal limits. Normal speech. PSYCHIATRIC: Appropriate mood and affect; insight and judgment normal. Data Data Last Documented VS Vital Signs Date Time Temp Pulse Resp B/P (MAP) Pulse Ox O2 Delivery O2 Flow Rate FiO2 10/19/17 09:40 98.0 94 18 153/103 (120) 97 MDM Medical Decision Making Medical Screen Exam Complete: Yes Emergency Medical Condition: No Differential Diagnosis Wound check, wound infection, suture removal Narrative Course Patient in no obvious distress upon re-evaluation. Any questions/concerns in reference to patient diagnosis/condition discussed and clarified prior to patient's discharge. Reinforced sheer importance of close follow up with patient 's primary physician or primary care clinic. Instructed patient to return to ED immediately, if symptoms return/worsen. Patient showed understanding of above instructions. Further instructions and recommendations were detailed in discharge paperwork. Patient ambulated without difficulty out of ED at discharge. Diagnosis Primary Impression: Visit for suture removal Patient Instructions: General Instructions, Stitches Removal (DC) Additional Instructions: Follow-up with your primary care physician next week for reevaluation. Keep wound dry and clean as possible using soap and water. Use Neosporin to promote healing. Return to the emergency department if symptoms get worse. Disposition: 01 DISCHARGE HOME Condition: Stable Ihsan aBrlow Oct 19, 2017 10:01
== END 2017-10-19 10:15 | disposition home or self-care (01) ==
LOC: PHED 09:32
DX: Z48.02 Encounter for removal of sutures (principal)
CPT/HCPCS: 99281